=== PATIENT | female | born 1985 | race Caucasian/White ===

== ENCOUNTER 2022-07-05 14:00 | Emergency (ER) | payer MEDICAID ==
[~2022-07-05] VITALS: Ht 170.2 cm; Wt 70.0 kg
[2022-07-05 14:31] VITALS: BP 129/90
[2022-07-05] MEDS ORDERED: ALPRAZolam 0.5mg tablet PO ONE (15:45)
[2022-07-05] MEDS ORDERED: HYDR25CA PO (16:04)
== END 2022-07-05 16:13 | disposition home or self-care (01) ==
LOC: ER 14:01
DX: F41.9 Anxiety disorder, unspecified (principal); F17.200 Nicotine dependence, unspecified, uncomplicated; Z79.899 Other long term (current) drug therapy
CPT/HCPCS: 99283